=== PATIENT | female | born 1965 | race Caucasian/White ===

== ENCOUNTER 2017-09-17 19:04 | Emergency (ER) | END 2017-09-17 22:16 | disposition home or self-care (01) | DX: S63.501A Unspecified sprain of right wrist, initial encounter (principal); E11.9 Type 2 diabetes mellitus without complications; I10 Essential (primary) hypertension; W01.0XXA Fall on same level from slipping, tripping and stumbling without subsequent striking against object, initial encounter; Y92.9 Unspecified place or not applicable; Z79.84 Long term (current) use of oral hypoglycemic drugs | CPT/HCPCS: 70450; 71010; 73110; 82962; 96372; J1885; Z7502 ==

== ENCOUNTER 2018-11-16 02:42 | Emergency (ER) | payer OTHER ==
[~2018-11-16] VITALS: Ht 160 cm; Wt 107.6 kg
[~2018-11-16 02:42] MED LIST: IBUP-1542 PO; LOPE2CAP PO; METF500T24 PO; ONDA4TAB14 PO
[2018-11-16 02:47] VITALS: Ht 160 cm; Wt 107.6 kg
[2018-11-16] MEDS ORDERED: SODI126M NASAL (05:56)
[2018-11-16] MEDS ORDERED: IBUP-1542 PO (05:56)
[2018-11-16 06:25] VITALS: BP 127/66; PULSE 75; RESP 19
--- NOTE | 2018-11-16 06:32 | ERD ---
ER Documentation Chief Complaint Chief Complaint cp x4 days. cough and fever x2 days. +sore throat HPI 53-year-old female is complaining of nasal congestion, feeling weak, and back pain times 4 days. She reports mild chest pain with inspiration, but states that the back pain is worse. Reports fever of 101 degrees in the first 2 days of the illness. States that she had developed a cough the last 2 days along with sore throat. Denies shortness of breath. Denies abdominal pain, vomiting, or diarrhea. Patient states that she did receive influenza vaccination this s david. Denies any medical history. ROS All systems reviewed and are negative except as per history of present illness. Medications Home Meds Active Scripts Sodium Chloride (Saline Nasal Mist) 126 Ml Mist, 2 SPRAY NASAL Q2H PRN for NASAL CONGESTION, #1 BOTTLE Prov:LUZ ALEX RADIOLOGY PRACTITIONER ASSISTANT 11/16/18 Ibuprofen* (Motrin*) 600 Mg Tab, 600 MG PO Q6H PRN for PAIN AND OR ELEVATED TEMP, #30 TAB Prov:LUZ ALEX RADIOLOGY PRACTITIONER ASSISTANT 11/16/18 Ibuprofen* (Ibuprofen*) 600 Mg Tablet, 600 MG PO Q8 for PAIN AND/OR INFLAMMATION, #30 TAB Prov:TIFFANY CARR MD 09/17/17 Ondansetron (Ondansetron Odt) 4 Mg Tab.rapdis, 4 MG PO Q6H PRN for NAUSEA AND/OR VOMITING, #10 TAB Prov:CARMELINA MARTINO MD 10/04/16 Loperamide Hcl* (Imodium*) 2 Mg Capsule, 2 MG PO .AFTER EA LOOSE BM PRN for DIARRHEA, #10 TAB Prov:CARMELINA MARTINO MD 10/04/16 Reported Medications Metformin Hcl* (Metformin Hcl*) 500 Mg Tablet, 500 MG PO WITH BREAKFAST, #30 TAB 10/03/16 Allergies Allergies: Coded Allergies: No Known Allergy (Unverified , 11/16/18) PMhx/Soc History of Surgery: Yes ( X1) Anesthesia Reaction: No Hx Neurological Disorder: No Hx Respiratory Disorders: No Hx Cardiac Disorders: No Hx Psychiatric Problems: No Hx Miscellaneous Medical Probl: Yes (diabetes ) Hx Alcohol Use: No Hx Substance Use: No Hx Tobacco Use: No Smoking Status: Never smoker Physical Exam Vitals Vital Signs Date Temp Pulse Resp B/P (MAP) Pulse Ox O2 O2 Flow FiO2 Time Delivery Rate 11/16/18 98.1 75 19 127/66 99 Room Air 06:25 (86) 11/16/18 98.0 82 20 132/73 96 02:47 (92) Physical Exam General: Well-developed, well-nourished, conscious and coherent, in no distress Skin: Warm and dry without rash, good texture and turgor Head: Normocephalic without evidence of trauma Nose/Face: Rhinorrhea Mouth/throat: Mucous membranes are moist. Posterior pharynx clear without erythema or exudates Neck: Supple without meningismus or adenopathy. Carotids are equal. Trachea midline. No bruits or JVD Chest: Normal AP diameter. Good expansion without retractions. Nontender. Lungs are clear to auscultate bilaterally with good tidal volume Heart: Regular rate and rhythm. No murmur, rub, or gallops heard Abdomen: Soft and nontender without masses, guarding, or rebound. Bowel sounds are active. No hepatosplenomegaly Extremities: Full range of motion. Good strength bilaterally. No erythema, ecchymosis, or edema. Peripheral pulses are intact. Sensation intact Neuro: Alert and oriented 4, GCS 15. Procedures/MDM Patient is afebrile, in no respiratory distress. Lungs are clear to auscultate. I doubt that patient has pneumonia or bronchitis. Likely patient's symptoms are result of viral upper respiratory infection. Patient appears well, stable for discharge and outpatient management. Medical decision making shared with patient and family. Education provided to patient and family. Patient and family expressed understanding of the plan. Medications on discharge: Ibuprofen, saline nasal spray, Robitussin. Follow-up: Primary care provider in 2-3 days or return to ED if worse. Disclaimer: Inadvertent spelling and grammatical errors are likely due to EHR/dictation software use and do not reflect on the overall quality of patient care. Also, please note that the electronic time recorded on this note does not necessarily reflect the actual time of the patient encounter. Departure Diagnosis: Primary Impression: URI (upper respiratory infection) Condition: Stable Patient Instructions: Adult Self-Care for Colds Ref[facility]: [facility] Usted se christianson hecho un examen mdico de control que le indica que no est en elina condicin que requiera tratamiento urgente en el Departamento de Emergencia. Un estudio ms profundo y el tratamiento de osuna condicin pueden esperar sin ningn riesgo hasta que usted sea atendida/o en el consultorio de osuna mdico o elina clnica. Es responsabilidad suya arreglar elina birdie para el seguimiento del shira. MANEJO DE CONDICIONES NO URGENTES EN EL FUTURO 1) Si usted tiene un mdico de atencin primaria: Usted debera llamar a osuna mdico de atencin primaria antes de venir al departamento de emergencia. Despus de las horas de consultorio, osuna doctor o osuna asociado/a est disponible por telfono. El mdico o enfermero de brandee en el servicio telefnico puede asesorarle por alexsander medio para atender el problema, o shira contrario se puede programar elina birdie. 2) Si usted no tiene un mdico de atencin primaria: Llame al mdico o clnica de referencia que aparece abajo justin las horas de consultorio para hacer elina birdie para que le vean. CLINICAS: [facility] [phone] [facility] [phone] [facility] [facility] [phone] [facility] [facility] [phone] [facility]. [place] [phone] [facility]. [phone] [address] Additional Instructions: Llame al doctor MAANA y nazanin elina BIRDIE PARA DENTRO DE 2-3 LAY.Dgale a la secretaria que nosotros le instruimos hacer esta birdie.Avise o llame si osuna condicin se empeora antes de la birdie. Regresa aqui si peor o no mejor. LUZ ALEX NP Nov 16, 2018 06:32
== END 2018-11-16 06:26 | disposition home or self-care (01) ==
LOC: FTE 02:42
DX: J06.9 Acute upper respiratory infection, unspecified (principal); E11.9 Type 2 diabetes mellitus without complications; Z79.84 Long term (current) use of oral hypoglycemic drugs
CPT/HCPCS: 93005; Z7502

== ENCOUNTER 2019-06-05 23:30 | Emergency (ER) | payer OTHER ==
[~2019-06-05] VITALS: Ht 162.6 cm; Wt 90.0 kg
[~2019-06-05 23:30] MED LIST changes: +SODI126M NASAL
[2019-06-05 23:33] VITALS: Ht 162.6 cm; Wt 90.0 kg
--- NOTE | 2019-06-06 00:42 | ERD ---
ER Documentation Chief Complaint Chief Complaint LEFT LEG PAIN X 2 DAYS. HPI 50-year-old female here with complaint of left knee pain for the past 2 days. Patient states that she fell on the leg a few weeks ago and the pain resolved but now came back the last couple days. States the pain is located in her knee. Patient states she is able to ambulate with difficulty. Patient denies any erythema, edema, chest pain, hemoptysis, dyspnea, history of clotting disorder, history of malignancy, recent surgeries numbness, tingling. ROS All systems reviewed and are negative except as per history of present illness. Medications Home Meds Active Scripts Sodium Chloride (Saline Nasal Mist) 126 Ml Mist, 2 SPRAY NASAL Q2H PRN for NASAL CONGESTION, #1 BOTTLE Prov:LUZ ALEX. TIRE CURER 11/16/18 Ibuprofen* (Motrin*) 600 Mg Tab, 600 MG PO Q6H PRN for PAIN AND OR ELEVATED TEMP, #30 TAB Prov:LUZ ALEX. TIRE CURER 11/16/18 Ibuprofen* (Ibuprofen*) 600 Mg Tablet, 600 MG PO Q8 for PAIN AND/OR INFLAMMATI ON, #30 TAB Prov:TIFFANY CARR MD 09/17/17 Ondansetron (Ondansetron Odt) 4 Mg Tab.rapdis, 4 MG PO Q6H PRN for NAUSEA AND/OR VOMITING, #10 TAB Prov:CARMELINA MARTINO MD 10/04/16 Loperamide Hcl* (Imodium*) 2 Mg Capsule, 2 MG PO .AFTER EA LOOSE BM PRN for DIARRHEA, #10 TAB Prov:CARMELINA MARTINO MD 10/04/16 Reported Medications Metformin Hcl* (Metformin Hcl*) 500 Mg Tablet, 500 MG PO WITH BREAKFAST, #30 TAB 10/03/16 Allergies Allergies: Coded Allergies: No Known Allergy (Unverified , 11/16/18) PMhx/Soc History of Surgery: Yes ( X1) Anesthesia Reaction: No Hx Neurological Disorder: No Hx Respiratory Disorders: No Hx Cardiac Disorders: No Hx Psychiatric Problems: No Hx Miscellaneous Medical Probl: Yes (diabetes ) Hx Alcohol Use: No Hx Substance Use: No Hx Tobacco Use: No FmHx Family History: No diabetes, No coronary disease, No other Physical Exam Vitals Vital Signs Date Temp Pulse Resp B/P (MAP) Pulse Ox O2 O2 Flow FiO2 Time Delivery Rate 7/29/19 97.2 77 20 172/86 97 23:33 (114) Physical Exam Const: No acute distress Head: Atraumatic Eyes: Normal Conjunctiva ENT: Normal External Ears, Nose and Mouth. Neck: Full range of motion. No meningismus. Resp: Clear to auscultation bilaterally Cardio: Regular rate and rhythm, no murmurs Abd: Soft, non tender, non distended. Normal bowel sounds Skin: No petechiae or rashes Back: No midline or flank tenderness Ext: No cyanosis, or edema. Mild tenderness palpation popliteal area of left knee. All distal pulses sensation is intact. Neur: Awake and alert Psych: Normal Mood and Affect Lower Extremity - bilateral: Skin: No laceration Compartments: Soft Motor: Full active range of motion hip/knee/ankle/foot Sensation: Intact to light touch FDWS/MF/LF/P surfaces. Bones: Nontender pelvis/knee/proximal tibia/ malleoli/foot Joints: No effusion or laxity Pulses/Perfusion: 2+ DP, Capillary refill < 2 seconds Results 24 hrs Laboratory Tests Test 06/06/19 01:02 POC Beta HCG, Qualitative NEGATIVE Current Medications Medications Dose Sig/Pema Start Time Status Last (Trade) Ordered Route PRN Stop Time Admin Dose Reason Admin 1 tab ONCE ONCE 06/06/19 DC 06/06/19 Acetaminophen PO 01:00 01:05 / 06/06/19 01:01 Hydrocodone Bitart ([place] (5/325)) Procedures/MDM DIAGNOSTIC IMAGING REPORT Patient: JASON FIERRO : 1965 Age: 53 Sex: F MR #: [id number] DOS: 06/06/19 0033 Ordering MD: BARBARA JONES Location: [facility] Room/Bed: PROCEDURE: US left lower extremity Venous. CLINICAL INDICATION: Left lower extremity pain TECHNIQUE: Multiple sonographic images of the left lower extremity deep venous system was obtained utilizing grayscale, color-flow, compressive sonography and doppler imaging with augmentation. COMPARISON: None. FINDINGS: There is normal compressibility and flow within the left common femoral, deep femoral, superficial femoral, posterior tibial, peroneal and popliteal veins. IMPRESSION: No sonographic evidence for deep venous thrombosis of the left lower extremity. RPTAT:AAJJ Physician Louise Date Time Electronically viewed and signed by Physician Louise on 06/06/2019 01:48 BM/ CC: BARBARA JONES [id number] DIAGNOSTIC IMAGING REPORT Patient: JASON FIERRO : 1965 Age: 53 Sex: F MR #: [id number] DOS: 06/06/19 0033 Ordering MD: BARBARA JONES Location: [facility] Room/Bed: PROCEDURE: Left knee series CLINICAL INDICATION: Trauma TECHNIQUE: AP, cross-table lateral and AP tunnel views of the left knee were obtained COMPARISON: Left knee series 03/12/2015 FINDINGS: Moderate degenerate joint disease left knee worse involving the medial compartment. No acute fractures or dislocations. No focal bony blastic or lytic lesions or erosions. No evidence left knee joint effusion. Soft tissues are unremarkable. IMPRESSION: Moderate degenerate joint disease left knee without acute fracture dislocation or joint effusion. RPTAT:AAJJ Physician Louise Date Time Electronically viewed and signed by Physician Louise on 06/06/2019 01:47 BM/ CC: BARBARA JONES [id number] MDM: Given patient's complaint of leg pain there was concern for possible DVT. Venous ultrasound was ordered results within normal limits. X-ray just showed degenerative joint disease is most likely explains patient's symptoms. Patient given Rx for ibuprofen and advised to follow-up with primary. I have low suspicion for neurovascular compromise, compartment syndrome, fracture, o steomyelitis, septic joint, DVT, or other emergent condition. At this time, patient is stable for discharge and outpatient management. I have instructed the patient to follow-up with his/her primary care physician in 1-2 days. I have discussed with the patient the possibility of needing to see a specialist for further workup and imaging studies if symptoms persist. I have instructed the patient to promptly return to the ER for any new or worsening symptoms including but not limited to increased pain, fever, nausea, vomiting, weakness or LOC. The patient and/or family expressed understanding of and agreement with this plan. All questions were answered. Home care instructions were provided. DISCLAIMER: Inadvertent spelling and grammatical errors are likely due to EHR/dictation software use and do not reflect on the overall quality of patient care. Also, please note that the electronic time recorded on this note does not necessarily reflect the actual time of the patient encounter. Departure Diagnosis: Primary Impression: Osteoarthritis Condition: Stable BARBARA JONES Jun 06, 2019 00:42
[2019-06-06] MEDS ORDERED: HYDROCODONE/APAP (5/325) TAB PO ONE (01:00)
[2019-06-06] MEDS ORDERED: IBUP-1542 PO (02:10)
[2019-06-06 02:24] VITALS: BP 136/75; PULSE 63; RESP 16
== END 2019-06-06 02:24 | disposition home or self-care (01) ==
LOC: FTE 23:30
DX: M17.12 Unilateral primary osteoarthritis, left knee (principal); E11.9 Type 2 diabetes mellitus without complications; Z79.84 Long term (current) use of oral hypoglycemic drugs
CPT/HCPCS: 73562; 81025; 93971; Z7502; Z7610